=== PATIENT | female | born 1965 | race Caucasian/White ===

== ENCOUNTER 2018-11-22 15:05 | Inpatient (IN) | payer BC ==
[~2018-11-22] VITALS: Ht 157.5 cm; Wt 66.2 kg
[2018-11-22 15:12] VITALS: Ht 157.5 cm; Wt 66.2 kg
--- NOTE | 2018-11-22 15:16 | NUR ---
EKG IN TRIAGE
--- NOTE | 2018-11-22 15:40 | NUR ---
AMBULATED TO THE RESTROOM WITH STEADY GAIT, URINE COLLECTED
--- NOTE | 2018-11-22 15:57 | NUR ---
PT. ARRIVED TO ED, REFERRED BY PCP FOR ABNORMAL EKG DURING OFFICE VISIT, PT. 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 DENIES SOB, DENIES N/V/D, DENIES NUMBNESS & TINGLING, C/O HEADACHE 10/11 & BACK PAIN, MADE AWARE, COLLECTED URINE, PLACED ON SHOULDER BONER, PULSE OX, AT BEDSIDE, WILL MONITOR, CALL LIGHT WITHIN REACH.
[2018-11-22 17:03] LABS: BASOPHIL % 0.5 % (0-2); PLATELET COUNT 247 x10^3mcL (130-400); RED CELL DISTRIBUTION WIDTH 13.6 % (11.5-14.5)
[2018-11-22 17:08] LABS: CALCIUM 7.8 mg/dL (8.5-10.1); CARBON DIOXIDE 23.8 mmol/L (21-32); CHLORIDE SERUM 101 mmol/L (98-107); CREATININE SERUM 0.8 mg/dL (0.6-1.0); GFR1 > 60 mL/min; GLUCOSE SERUM 113 mg/dL (74-106); POTASSIUM SERUM 3.5 mmol/L (3.5-5.1); SODIUM SERUM 136 mmol/L (136-145)
--- NOTE | 2018-11-22 17:08 | NUR ---
MEDICATED PER ORDER, PT. TOLERATED WELL, SEE EMAR FIRST DOSE NITRO 0.4 SB ADMINISTERED, PT. STATES SHE FEELS MUCH BETTER, PAIN LEVEL WAS PREVIOUSLY 8/10 TO 3/10 SCALE. B/P 139/75 HR 75
[2018-11-22 17:15] LABS: ALKALINE PHOSPHATASE 53 U/L (46-116); ALT/SGPT 73 U/L (14-59); AMYLASE 138 U/L (25-115); AST/SGOT 49 U/L (15-37); BILIRUBIN TOTAL 0.2 mg/dL (0.20-1.00); CHOLESTEROL 171 mg/dL (<200); HDL CHOLESTEROL 44 mg/dL (40-60); LIPASE 149 IU/L (73-393); TOTAL PROTEIN, SERUM 6.9 g/dL (6.4-8.2)
[2018-11-22 17:19] LABS: microscopic required? NO
[2018-11-22 17:29] LABS: UA SPECIFIC GRAVITY 1.015 (1.005-1.035); urine erythrocyte NEGATIVE (NEGATIVE)
--- NOTE | 2018-11-22 17:33 | NUR ---
PT. LAYING IN BED, AAOX4, NO ACUTE DISTRESS NOTED, DENIES SOB, PT. STATES SHE FEELS MUCH BETTER AFTER THE MEDICATION ADMINISTRATION, SPEAKING TO AT BEDSIDE, 3/10 PAIN RIGHT SHOULDER, ON ASSISTANT NURSE MANAGER, PULSE OX, CALL LIGHT WITHING REACH, VSS, WILL CONTINUE TO MONITOR, PENDING LAB RESULTS, UPDATED PT. WITH POC
[2018-11-22 17:48] LABS: AMPHETAMINE QUAL UR NONE DETECTED (See below)
--- NOTE | 2018-11-22 18:20 | NUR ---
PT. STATES PAIN 0/10, "ITS DONE, I DONT FEEL THE PAIN ANYTMORE."
--- NOTE | 2018-11-22 18:35 | NUR ---
AT [facility], UPDATING PT. ON POC, ADMITTING PT FOR OBS,
--- NOTE | 2018-11-22 18:35 | NUR ---
POC DISCUSSED WITH PT BY DR KENNEDY. PT AGREES TO BE ADMITTED TO HOSPITAL
[2018-11-22] MEDS ORDERED: MEDROXYPROGEST2.5 MG (18:36)
[2018-11-22] MEDS ORDERED: PAROXETINE HCL20 M1 (18:36)
[2018-11-22] MEDS ORDERED: PREMPRO1 TA2 (18:36)
[2018-11-22] MEDS ORDERED: WEL75 (18:36)
--- NOTE | 2018-11-22 19:33 | NUR ---
REPORT GIVEN TO LYSSA TESFAYE TO ASSUME CARE OF PT.
--- NOTE | 2018-11-22 20:22 | NUR ---
RECEIVED PT [employer]IA [employer] FROM E/D, ACCOMPANIED BY RN AND TRANSPORTER. PT A/A/O X 4, CALM, COOPERATIVE; C/O CONSTANT THROBBING H/A, 12/12; WEARS GLASSES (W/ PT). AMBULATORY, NO GAIT OR BALANCE IMPAIRMENT NOTED, C/O CONSTANT ACHING BACK PAIN /, EXACERBATED BY MOVEMENT AND WALKING, RELIEVED BY REST AND PAIN MEDICATIONS. ON TELE # 2, HR 71, JUNCTIONAL RHYTHM, DENIES CHEST PAIN OR DISCOMFORT AT THIS TIME. NO ACUTE RESPIRATORY DISTRESS NOTED. IV SITE LAC 20G, CDI. ORIENTED PT TO ROOM, BED CONTROLS, CALL LIGHT SYSTEM. SIDE RAILS UP X 2, BED IN LOW POSITION. WILL ENDORSE TO LYSSA TESFAYE.
[2018-11-22 20:40] LABS: T3 TOTAL 1.32 ng/mL
[2018-11-22 20:46] LABS: FREE T4 1.01 ng/dL (0.76-1.46); FREE THYROXINE INDEX 3.1 ug/dL (1.4-4.5); T4(THYROXINE) 10.1 ug/dL (4.7-13.3)
[2018-11-22 20:53] VITALS: BP 151/78
[2018-11-22 21:03] LABS: CARBON DIOXIDE 24.1 mmol/L (21-32); CHLORIDE SERUM 100 mmol/L (98-107); CHOLESTEROL 175 mg/dL (<200); CHOLESTEROL/HDL RATIO 4.2; CREATININE SERUM 0.8 mg/dL (0.6-1.0); GFR1 > 60 mL/min; GLUCOSE SERUM 110 mg/dL (74-106); HDL CHOLESTEROL 42 mg/dL (40-60); PHOSPHOROUS 3.1 mg/dL (2.5-4.9); POTASSIUM SERUM 3.5 mmol/L (3.5-5.1); SODIUM SERUM 136 mmol/L (136-145)
[2018-11-22 21:04] LABS: TRIGLYCERIDES 267 mg/dL (<150)
--- NOTE | 2018-11-23 01:02 | NUR ---
PT COMPLAINED OF HEADACHE 11/11. ADMINISTERED TYLENOL PER ORDER.
--- NOTE | 2018-11-23 02:43 | NUR ---
PT RESTING IN BED WITH EYES CLOSED. NO FACIAL GRIMMACING. NO DISTRESS NOTED AT THIS TIME.
--- NOTE | 2018-11-23 05:18 | NUR ---
PT RESTING IN BED, NO DISTRESS NOTED AT THIS TIME. NO USE OF ACCESSORY MUSCLES OR LABORED BREATHING. NO SIGNIFICANT CHANGES NOTED THROUGHOUT THE SHIFT. NO SIGNS OR SYPTOMS OF CHEST PAIN. SAFETY MEASURES ARE IN PLACE BED IS IN THE LOWEST POSITION CALL LIGHT IS WITHIN REACH.
[2018-11-23 05:45] VITALS: BP 150/77
--- NOTE | 2018-11-23 05:46 | NUR ---
PT COMPLAINED OF LUONG. ADMINISTERED NORCO. WILL REASSESS.
[2018-11-23 06:58] LABS: BASOPHIL % 0.4 % (0-2); PLATELET COUNT 247 x10^3mcL (130-400); RED CELL DISTRIBUTION WIDTH 13.6 % (11.5-14.5)
--- NOTE | 2018-11-23 07:12 | NUR ---
RECEIVED REPORT FROM MERA OMALLEY. PATIENT IN BED HAVING ULTRASOUND OF THE ABDOMEN DONE. SALINE LOCK TO LAC IS PATENT AND INTACT. NO REDNESS OR PAIN. TELE # [address] PATIENT DENIES CHEST PAIN. PT ON O2 2L NC. NO C/O SOB AND NO DISTRESS NOTED. ALL QUESTIONS AND CONCERNS ADDRESSED.
[2018-11-23 07:36] LABS: CALCIUM 8.1 mg/dL (8.5-10.1); CARBON DIOXIDE 23.3 mmol/L (21-32); CHLORIDE SERUM 102 mmol/L (98-107); CREATININE SERUM 0.7 mg/dL (0.6-1.0); GFR1 > 60 mL/min; GLUCOSE SERUM 88 mg/dL (74-106); MAGNESIUM 2.2 mg/dL (1.8-2.4); PHOSPHOROUS 3.4 mg/dL (2.5-4.9); POTASSIUM SERUM 3.8 mmol/L (3.5-5.1); SODIUM SERUM 139 mmol/L (136-145)
--- NOTE | 2018-11-23 08:32 | NUR ---
IN TO SEE PATIENT AND ADMINISTER MEDICATION (SEE eMAR). PATIENT RESTING IN BED C/O CONTINUED HEADACHE. OFFERED TYELENOL BUT PATIENT DECLINED. ALL OTHER NEEDS MET.
[2018-11-23 08:55] VITALS: BP 152/77
--- NOTE | 2018-11-23 11:18 | NUR ---
IN TO SEE PATIENT AND ADMINISTER MEDICATION (SEE eMAR) FOR HEADACHE. WILL REASSESS.
[2018-11-23 13:30] VITALS: BP 109/58
--- NOTE | 2018-11-23 14:19 | NUR ---
DR MCCRAY PAGED TO NOTIFY THAT PT C/O HEADACHE NOT RELEIVED BY NORCO OR ULTRAM.
--- NOTE | 2018-11-23 15:08 | NUR ---
IN TO SEE PATIENT AND ADMINISTER MEDICATION (SEE eMAR) FOR HEADACHE NOT RELIEVED BY NORCO OR TORADOL. WILL REASSESS.
--- NOTE | 2018-11-23 16:46 | NUR ---
ECHO BEGINNING NOW. PT REPORTED NAUSEA AND WHILE OBTAINING MEDICATION, PATIENT VOMITTED 750 ML OF HER LUNCH. ZOFRAN ADMINISTERED AND NITRO PATCH WAS ALSO REMOVED PER DR MCCRAY ORDER.
[2018-11-23 17:36] VITALS: BP 151/75
--- NOTE | 2018-11-23 19:30 | NUR ---
RECEIVED PT FROM DAY SHIFT RN. PT IS ALERT AND ORIENTED X4 AND ABLE TO FOLLOW COMMANDS. CURRENTLY RESTING IN BED. PT DENIES ANY CHEST PAIN AT THIS TIME OR SHORTNESS OF BREATH ON ROOM. BREATHING IS EVEN AND UNLABORED. PT COMPLAINTS OF MINOR HEADACHE BUT STATES IT IS GRADUALLY GETTING BETTER AFTER BEING MEDICATED WITH NORCO 1 HR AGO. WILL CONTINUE TO MONITOR PT'S HEADACHE. PT IS AMBULATORY WITHOUT ASSIST. STATES SHE IS ABLE TO USE THE RESTROOM INDEPENDENTLY BUT ENCOURAGED PT TO CALL IF SHE IS FEELING DIZZY OR LIGHTHEADED. PT DENIES ANY NAUSEA OR VOMITTING AT THIS TIME. AND SAYS SHES SHE FEELS BETTER AFTER RECEIVING ZOFRAN. SAFETY MEASURES ARE IN PLACE. BED IN THE LOWEST POSITION. CALL LIGHT WITHIN REACH. WILL CONTINUE TO MONITOR PT.
--- NOTE | 2018-11-23 19:54 | NUR ---
REPORT GIVEN TO MERA OMALLEY. ALL QUESTIONS AND CONCERNS ADDRESSED. ALL CARES ENDORSED.
[2018-11-23 20:51] VITALS: BP 138/67
--- NOTE | 2018-11-24 03:17 | NUR ---
PT CURRENTLY RESTING IN BED. NO ACUTE DISTRESS NOTED. NO SIGNIFICANT CHANGES NOTED. SAFETY MEASURES IN PLACE. BED IN LOWEST POSITION. CALL LIGHT WITHIN REACH. WILL MONITOR.
[2018-11-24 05:07] VITALS: BP 135/67
--- NOTE | 2018-11-24 05:36 | NUR ---
PT COMPLAINED OF HEADACHE 7. GAVE TYLENOL WILL MONITOR.
[2018-11-24 06:46] LABS: BASOPHIL % 0.6 % (0-2); PLATELET COUNT 247 x10^3mcL (130-400); RED CELL DISTRIBUTION WIDTH 13.4 % (11.5-14.5)
[2018-11-24 07:20] LABS: CARBON DIOXIDE 27.1 mmol/L (21-32); CHLORIDE SERUM 100 mmol/L (98-107); CREATININE SERUM 0.8 mg/dL (0.6-1.0); GFR1 > 60 mL/min; MAGNESIUM 2.2 mg/dL (1.8-2.4); POTASSIUM SERUM 3.8 mmol/L (3.5-5.1); SODIUM SERUM 136 mmol/L (136-145)
--- NOTE | 2018-11-24 07:44 | NUR ---
A+OX4, NO RESPRIATORY DISTRESS NOTED, STATES LUONG IS NOW TOLERABLE AT RECEIVING TYLENOL FROM NIGHT RN, MEDSURG, PULSES MODERATE AND EQUAL AUDRA, NO EDEMA NOTED, LUNG SOUNDS CTA, TOLERATING RA, BOWEL SOUNDS ACTIVE, VOIDING FREELY, GENERALIZED WEAKNESS, SKIN INTACT, IV IN LAC SALINE LOCKED, SITE WNL, PT DENIES CHEST PAIN.
[2018-11-24 07:59] LABS: GLUCOSE SERUM 81 mg/dL (74-106)
--- NOTE | 2018-11-24 09:07 | NUR ---
PT RESTING IN BED, DENIES CHEST PAIN, DENIES LUONG, NO RESPRIATORY DISTRESS NOTED, CALL LIGHT WITHIN REACH.
[2018-11-24 09:33] VITALS: BP 137/77
[2018-11-24] MEDS ORDERED: LISINOPRIL5 MG PO (09:50)
[2018-11-24] MEDS ORDERED: GOOD SENSE OMEP20 MG PO (09:50)
[2018-11-24] MEDS ORDERED: ATORVASTATIN CA10 M1 PO (09:50)
[2018-11-24 10:31] VITALS: BP 137/77
--- NOTE | 2018-11-24 11:10 | NUR ---
PT REQUESTING TO SPEAK TO BRIAR SHOP SUPERVISOR BEFORE DC. BRIAR SHOP SUPERVISOR ADRIANNE AT BEDSIDE TO SPEAK TO PT.
--- NOTE | 2018-11-24 11:25 | NUR ---
PT GIVEN DC INSTRUCTIONS INCLUDING PRESCRIPTIONS AND VERBALIZED UNDERSTANDING. IV REMOVED WITH CATHETER INTACT, SITE WNL, GAUZE AND TAPE PLACED ON SITE.
--- NOTE | 2018-11-24 11:40 | NUR ---
PT OFF THE UNIT VIA WC WITH ALL BELONGINGS ESCORTED BY RECOVERY ADVOCATE AND FAMILY.
== END 2018-11-24 11:32 | disposition home or self-care (01) | DRG 313 ==
LOC: ED 15:05 → DU 18:52 → MU 11-24 02:22
PROVIDERS: Emergency Medicine; ADMIT General Practice
DX: R07.89 Other chest pain (principal); E44.0 Moderate protein-calorie malnutrition; F32.9 Major depressive disorder, single episode, unspecified; R74.0 Nonspecific elevation of levels of transaminase and lactic acid dehydrogenase [LDH]; E83.51 Hypocalcemia; E78.5 Hyperlipidemia, unspecified; K58.9 Irritable bowel syndrome, unspecified; Z68.26 Body mass index [BMI] 26.0-26.9, adult; Z87.891 Personal history of nicotine dependence; Z79.899 Other long term (current) drug therapy; Z83.3 Family history of diabetes mellitus; Z82.49 Family history of ischemic heart disease and other diseases of the circulatory system
CPT/HCPCS: 83880; 84439; 85378; G0378; J2405; Q0092